=== PATIENT | female | born 1945 | race American Indian/Alaskan Native ===

== ENCOUNTER 2016-05-01 07:33 | Inpatient (IN) | payer MEDICARE, OTHER ==
--- NOTE | 2016-04-24 11:16 | Anesthesia Consultation ---
Anesthesia Consult and Med Hx Date of service: 04/24/16 - Airway Anesthetic Teeth Evaluation: Good ROM Head & Neck: Adequate Mental/Hyoid Distance: Adequate Mallampati Class: Class II Intubation Access Assessment: Probably Good - Pre-Operative Health Status ASA Pre-Surgery Classification: ASA3 Proposed Anesthetic Plan: Epidural, Spinal Nerve Block: Femoral - Pulmonary Hx Smoking: Yes (STOPPED X 30 YRS- 1 PACK PER WEEK) Hx Sleep Apnea: No (DOLLY PRE SCREEN HIGH RISK) - Cardiovascular System Hx Hypertension: Yes (X 20 YRS) Hx Coronary Artery Disease: (high cholesterol) - Endocrine Hx Insulin Dependent Diabetes: Yes - Hematic Hx Sickle Cell Disease: No (SC TRAIT ONLY) - Other Systems Hx Cancer: No Hx Obesity: Yes (BMI 41.5)
[2016-04-24 11:26] LABS: Basophils % (Auto) 0.3 % (0.0-1.8); Eosinophils % (Auto) 3.5 % (0.0-4.3); Hematocrit 37.3 % (30.3-42.9); Hemoglobin 12.2 gm/dl (10.1-14.3); Mean Corpuscular HGB Conc 33 % (30-34); Mean Corpuscular Hemoglobin 28 pg (28-32); Mean Corpuscular Volume 86 fl (79-97); Platelet Count 228 K/mm3 (140-440); Red Blood Count 4.33 M/mm3 (3.65-5.03); Red Cell Distribution Width 12.8 % (13.2-15.2); White Blood Count 8.4 K/mm3 (4.5-11.0)
[2016-04-24 11:46] LABS: Albumin 3.7 g/dL (3.9-5); BUN/Creatinine Ratio 14.7; Bilirubin,Total 0.3 mg/dL (0.1-1.2); Calcium 9.4 mg/dL (8.4-10.2); Chloride 95.1 mmol/L (98-107); Potassium 3.1 mmol/L (3.6-5.0); Total Protein 7.4 g/dL (6.3-8.2)
--- NOTE | 2016-04-30 16:10 | History and Physical Report ---
History of Present Illness Date of examination: 04/30/16 Date of admission: 04/30/16 Chief complaint: 71-year-old admitted with pain and limitation of movement left knee, confirmed diagnosis DJD. Been treated with rehabilitation, medications with no improvement, being admitted for total knee arthroplasty. Past History Past Medical History: diabetes, hyperlipidemia Medications and Allergies Allergies Allergy/AdvReac Type Severity Reaction Status Date / Time No Known Allergies Allergy Verified 04/19/16 10:30 Home Medications Medication Instructions Recorded Confirmed Last Taken Type Aspirin [Adult Low Dose Aspirin EC] 81 mg PO DAILY 04/19/16 04/19/16 Unknown History AtorvaSTATin [Lipitor] 20 mg PO DAILY 04/19/16 04/19/16 Unknown History Famotidine [Pepcid] 40 mg PO DAILY 04/19/16 04/19/16 Unknown History Fluticasone [Flonase] 1 spray NS QDAY 04/19/16 04/19/16 Unknown History Insulin Glargine [Lantus] 30 unit SUB-Q QHS 04/19/16 04/19/16 Unknown History Insulin Lispro [HumaLOG VIAL] 12 units SQ TID 04/19/16 04/19/16 Unknown History Metoprolol [Lopressor TAB] 50 mg PO DAILY 04/19/16 04/19/16 Unknown History Multivit-Min/Iron/Folic/Lutein 1 tab PO DAILY 04/19/16 04/19/16 Unknown History [Centrum Silver Women Tablet] Telmisartan/Hydrochlorothiazid 1 tab PO DAILY 04/19/16 04/19/16 Unknown History [Telmisartan-Hctz 80-25 mg Tab] amLODIPine [Norvasc] 10 mg PO DAILY 04/19/16 04/19/16 Unknown History Active Meds: Active Medications Celecoxib (Celebrex) 200 mg PO PREOP NR Stop: 05/01/16 23:01 Famotidine (Pepcid) 20 mg IV PREOP NR Stop: 05/01/16 23:01 Gabapentin (Neurontin) 150 mg PO PREOP NR Stop: 05/01/16 23:01 Cefazolin Sodium (Ancef/Sterile Water 2 Gm/20 Ml) 20 mls @ 80 mls/hr IV PREOP NR PRN Reason: Protocol Stop: 05/01/16 23:59 Sodium Chloride (Nacl 0.9% 1000 Ml) 1,000 mls @ 100 mls/hr IV DIRECT ABELARDO Midazolam HCl (Versed) 2 mg IV PREOP NR Stop: 05/01/16 23:01 Exam - Constitutional Vitals: Temp Pulse Resp BP Pulse Ox 98.6 F 70 18 130/80 04/24/16 11:00 04/24/16 11:00 04/24/16 11:00 04/24/16 11:00 General appearance: Present: no acute distress, well-nourished - EENT Eyes: Present: PERRL ENT: hearing intact, clear oral mucosa - Neck Neck: Present: supple, normal ROM - Respiratory Respiratory effort: normal Respiratory: bilateral: CTA - Cardiovascular Heart Sounds: Present: S1 & S2. Absent: rub, click - Extremities Extremities: pulses symmetrical, No edema, abnormal (A 71-year-old with limping gait, knee with swelling no effusion, crepitus with range of motion. No neurovascular deficit, quad strength grade 5. Collateral ligament stable. Knee range of motion -3 flexion 100, no popliteal masses, no calf pain, tenderness.) Peripheral Pulses: within normal limits - Abdominal General gastrointestinal: Present: soft, non-tender, non-distended, normal bowel sounds Female genitourinary: Present: normal - Integumentary Integumentary: Present: clear, warm, dry - Musculoskeletal Musculoskeletal: gait normal, strength equal bilaterally - Psychiatric Psychiatric: appropriate mood/affect, intact judgment & insight - Neurologic Neurologic: CNII-XII intact, moves all extremities Results - Labs CBC & Chem 7: 04/24/16 11:00 04/24/16 11:00 Assessment and Plan - Patient Problems (1) Left knee DJD Status: Chronic Qualifiers: Osteoarthritis type: primary Qualified Code(s): M17.12 - Unilateral primary osteoarthritis, left knee Plan to address problem: left total knee arthroplasty
[~2016-05-01 07:33] MED LIST: ANCEF/STERILE WATER 2 GM/20 ML 20 ML IV NR; NACL 0.9% IR ONE; NEOSPORIN GU IR ONE; NEURONTIN PO NR; PEPCID IV NR; VERSED IV NR
[2016-05-01] MEDS ORDERED: DILAUDID IV PRN (09:43)
[2016-05-01] MEDS ORDERED: MARCAINE-EPI 0.5%-1:200,000 INFILTRATI ONE (10:31)
[2016-05-01] MEDS: NACL 0.9% 1000 ML 1,000 ML IV SCH (10:39)
[2016-05-01] MEDS ORDERED: ZOFRAN IV PRN ×2 (11:00→19:18)
[2016-05-01] MEDS ORDERED: DIPRIVAN 10 MG/ML IV ONE ×2 (12:39)
[2016-05-01] MEDS ORDERED: VERSED ONE (12:39)
[2016-05-01] MEDS ORDERED: DILAUDID ONE (12:39)
[2016-05-01] MEDS ORDERED: KETALAR IV ONE (12:42)
[2016-05-01] MEDS ORDERED: ZOFRAN ONE (13:00)
[2016-05-01] MEDS ORDERED: XYLOCAINE MPF 2% ONE (13:00)
[2016-05-01] MEDS ORDERED: ePHEDrine SULFATE ONE (13:37)
[2016-05-01] MEDS ORDERED: NEOSPORIN GU IR ONE (13:38)
[2016-05-01] MEDS ORDERED: NACL 0.9% IR ONE ×2 (13:38)
--- NOTE | 2016-05-01 13:44 | Admit Criteria Form ---
Admission Criteria Documentation: AMBULATORY SURGERY EXCEPTION CRITERIA Ambulatory Surgery Exception Criteria ( Place 'X' for any and all applicable criteria): Surgery or procedure performed on ambulatory basis may require inpatient stay for[A] ANY ONE of the following(1)(2)(3)(4)(5)(6)(7)(8)(9): [X] I. A preoperative situation, condition, or finding that warrants inpatient stay as indicated by ANY ONE of the following: [X] a) Inpatient care needed because of severity of a disease or condition rather than the surgery (eg, severe cardiac or respiratory disease, severe infection) (15) (16 ) (17) (18) [] b) Emergent procedure (eg, angioplasty for acute ischemia)(19) [] c) Complex surgical approach or situation as indicated by ANY ONE of the following(3): [] i) Open approach needed instead of usual endoscopic, transcatheter, or other less invasive procedure [] ii) Difficult approach because of previous operation [] iii) Airway monitoring required after open neck procedures(20)(21) [] iv) Large mass requiring unusually extensive dissection [] v) Additional complicating feature requiring inpatient care (eg, drain management)(22(23): [X] d) Major surgery in a pt with high anesthetic risk as indicated by ANY ONE of the following (2)(3)(5)(7)(8): [X] i) ASA risk class III or higher (severe systemic disease impairing function) [D] [] ii) Advanced age (eg, older than 85 years)(14)(24) [] iii) Symptomatic heart failure(25) [] iv) Symptomatic asthma or COPD(8)(21) [] v) Morbid obesity with hemodynamic or respiratory problems(20)( 21)(26)(27) [] vi) Obstructive sleep apnea(20)(21) [] vii) Former premature infants who are younger than 60 weeks [] viii) High risk for severe postoperative abnormalities (eg, severe postoperative hypocalcemia after parathyroidectomy for severe hyperparathyroidism)(27)( 28) [] ix) Unstable angina(25) [] e) Drug-related risk requiring inpatient stay as indicated by ANY ONE of the following(5)(10)(14)(32)(33) [] i) Procedure requires discontinuing drugs or other therapy (eg , antiarrhythmic medication, antiseizure medication), which necessitates inpatient observation or treatment.(18)(31) [] ii) Major surgery and high risk drug use as indicated by ANY ONE of the following: [] 1) Active abuse of cocaine or similar drug [] 2) Monoamine oxidase inhibitor use [] 3) Other drug identified as posing risk [] f) Inadequate outpatient care situation as indicated by ANY ONE of the following(5)(10)(14)(32)(33) [] i) Patient lives remote from medical facility and procedure has urgent complication potential, and temporary nearby residence cannot be arranged [] ii) Patient will have postprocedure incapacitation and inadequate assistance at home, or alternative level of care cannot be arranged. [] iii) Patient will have long general anesthesia or procedure side effect resolution time, and competent person to stay with patient on first postoperative night at home or alternative level of care cannot be arranged. []iv) Other inadequate outpatient situation that cannot be handled by other means [] II. A perioperative event, condition, or finding that warrants inpatient stay as indicated by ANY ONE of the following (1)(2)(3): [] a) Inadequate physiologic recovery: cardiovascular, respiratory, or hemodynamic status not normal or near preoperative baseline(18) [] b) Hemodynamic instability [] c) Patient not alert with near normal or baseline mental status [] d) Temperature not normal or as expected and not appropriate for outpatient treatment of condition [] e) Ambulatory or appropriate activity level status not yet achieved post procedure [E](34)(35)(36) [] f) Operative site not appropriate (eg, unexpected or excessive drainage or bleeding) [] g) Postoperative effects not resolved or adequately managed (eg, significant pain or vomiting not appropriate for outpatient or next level of care)(10)(12) [] h) Complicating features requiring inpatient care as indicated by ANY ONE of the following(37): [] i) Severe complications of procedure (eg, bowel injury, airway compromise, vascular injury,severe hemorrhage) [] ii) Extensive (eg, dissection far beyond usual scope of procedure ) or prolonged (eg, 120 minutes beyond usual) surgery needed requiring inpatient postoperative care [] iii) Conversion to an open or complex procedure that requires inpatient care (eg, open vs laparoscopic cholecystectomy, abdominal vs vaginal hysterectomy)(38) [] iv) Comorbid condition or test result identified during or post procedure that requires inpatient care (7) [] v) Malignant hyperthermia(30) [] vi) Other complicating feature requiring inpatient care(22)(23) Inpatient stay may be needed until ALL of the following are present (1)(2)(3)(4) (5)(6)(10)(14)(33)(40): []a) Physiologic recovery: cardiovascular, respiratory, and hemodynamic status normal or near preoperative baseline []b) Hemodynamic stability []c) Patient alert, with near normal or baseline mental status []d) Temperature appropriate: patient afebrile or temperature appropriate for outpt treatment of condition []e) Activity level appropriate: ambulatory or appropriate activity level post procedure []f) Operative site appropriate as indicated by ALL of the following: []i) Site dry or with expected drainage []ii) Any blood noted is as expected for procedure. []g) Postoperative effects resolved or managed as indicated by ALL of the following: []i) Pain management appropriate for outpatient (or next level of) care(10) []ii) Minimal nausea and vomiting: if present, successfully treated with oral medication(12) []iii) Headache, dizziness, or drowsiness (if present) are mild. []h) Voiding status acceptable as indicated by ANY ONE of the following: []i) Voiding spontaneously []ii) No voiding but instructions given for follow-up in 6 to 8 hours []iii) Urinary catheter in place, and instructions given for follow-up []i) Complicating features requiring inpatient care manageable at a lower level of care(37) []j) Comorbid conditions manageable at a lower level of care(37) The original [employer] content created by [employer] has been revised. The portions of the content which have been revised are identified through the use of italic text or in bold, and [facility] has neither reviewed nor approved the modified material. All other unmodified content is copyright [employer]. Please see references footnoted in the original [employer] edition 2016 Admission Criteria Met: Yes
--- NOTE | 2016-05-01 14:42 | Procedure Note ---
Date of procedure: 05/01/16 Pre-op diagnosis: DJD left Knee Post-op diagnosis: same Procedure: Left total knee (cam, cemented) Anesthesia: regional, spinal Surgeon: TABATHA OKEEFE Estimated blood loss: none Pathology: list Specimen disposition: to lab Condition: stable Disposition: PACU
--- NOTE | 2016-05-01 15:36 | XRay Report ---
Left knee 2 views: History: Postop. Findings: There is total knee replacement noted. The the tibia and the femoral component is anatomic and in alignment. Postop soft tissue changes. Impression: Stable total right knee.
[2016-05-01] MEDS ORDERED: MORPHINE IV PRN (19:18)
[2016-05-01] MEDS ORDERED: TYLENOL PO PRN (19:18)
[2016-05-01] MEDS ORDERED: D50W (25GM) IV PRN (19:18)
[2016-05-01] MEDS ORDERED: AMBIEN PO PRN (19:18)
[2016-05-01] MEDS ORDERED: SODIUM CHLORIDE FLUSH SYRINGE 10 ML IV PRN (19:18)
[2016-05-01] MEDS ORDERED: PHENERGAN PR PRN (19:18)
[2016-05-01] MEDS ORDERED: INSULIN LISPRO 12 UNIT SQ SCH (20:00)
--- NOTE | 2016-05-01 20:16 | Operative Report ---
PREOPERATIVE DIAGNOSIS: Severe degenerative joint disease, left knee. POSTOPERATIVE DIAGNOSIS: Severe degenerative joint disease, left knee. OPERATIVE PROCEDURE: Left total knee arthroplasty, Ralph, cemented. SURGEON: Omero Rodrigues MD CLIENT CARE COORDINATOR: Loulou Trevino CSA. ANESTHESIA: Regional block with general sedation. TOURNIQUET TIME: 1 hour 10 minutes approximate. DESCRIPTION OF PROCEDURE: The patient was taken to surgery suite, satisfactory analgesia obtained with regional block supplemented with general sedation. The left lower limb prepped with ChloraPrep, satisfactorily draped. The correct patient, procedure, and site were confirmed. After exsanguinating, tourniquet inflated to 300 mmHg pressure. Midline incision was made and the knee was entered. Intramedullary alignment system was applied and distal femur was resected at 5 degree valgus and 9 mm thickness to the tip of the femoral condyle. With the #[address], anterior, posterior chamfer cuts were made. Remaining osteophytes were debrided and a complete synovectomy was carried out. Trial fitting was carried out, fit appeared satisfactory. Drill holes were made to the end of the femur to allow seating of the femoral peg. After excising the meniscus, joint capsule was elevated. Tibia delivered anteriorly to the wound and the proximal tibia was resected at 9 mm thickness to the lateral tibial plateau, resection made perpendicular to the long axis of the tibia. PCL was preserved. Tibial surface templated to 4 and with the [address], proximal tibia was osteotomized to allow seating of the tibial stem. Trial reduction was carried out using the #4 tibial and femoral components and 9 mm thick tibia spacer, the range of component appeared fitting satisfactory and stability appeared satisfactory. The patella was then reamed to allow a 27 mm inset patellar tracking appeared central. Wound was irrigated with pulse irrigation system, a #4 femoral component, 4 tibial baseplate and a 27 mm all polyethylene patella was cemented in place. Extruding methyl methacrylate was debrided and the wound was irrigated with pulse irrigation system. Trial reduction was again carried out using the 9 and 11 mm thick spacers, 11 mm thickness appeared giving optimal stability and range of motion, 0-120 degrees. The trial spacer was then exchanged for a high density polyethylene spacer locked in place and PCL was preserved. Following irrigation, the wound was closed in layers in the standard fashion using 0 Vicryl, 2-0 Vicryl, and simón. Sterile dressings were applied. The patient was transferred to recovery room in satisfactory condition, tolerated the procedure well and at the completion of procedure, counts were accurate. JOB# [id number] YANIV/MADHU
--- NOTE | 2016-05-01 21:47 | Consultation ---
History of Present Illness - Reason for Consult Consult date: 05/01/16 Medical management Requesting physician: TABATHA OKEEFE - History of Present Illness S/p Lt TKA -post op doing well Past History Past Medical History: diabetes, GERD, hypertension, hyperlipidemia Past Surgical History: total knee replacement Medications and Allergies Allergies Allergy/AdvReac Type Severity Reaction Status Date / Time No Known Allergies Allergy Verified 04/19/16 10:30 Home Medications Medication Instructions Recorded Confirmed Last Taken Type Aspirin [Adult Low Dose Aspirin EC] 81 mg PO DAILY 04/19/16 04/19/16 Unknown History AtorvaSTATin [Lipitor] 20 mg PO DAILY 04/19/16 04/19/16 Unknown History Famotidine [Pepcid] 40 mg PO DAILY 04/19/16 04/19/16 Unknown History Fluticasone [Flonase] 1 spray NS QDAY 04/19/16 04/19/16 Unknown History Insulin Glargine [Lantus] 30 unit SUB-Q QHS 04/19/16 04/19/16 Unknown History Insulin Lispro [HumaLOG VIAL] 12 units SQ TID 04/19/16 04/19/16 Unknown History Metoprolol [Lopressor TAB] 50 mg PO DAILY 04/19/16 04/19/16 Unknown History Multivit-Min/Iron/Folic/Lutein 1 tab PO DAILY 04/19/16 04/19/16 Unknown History [Centrum Silver Women Tablet] Telmisartan/Hydrochlorothiazid 1 tab PO DAILY 04/19/16 04/19/16 Unknown History [Telmisartan-Hctz 80-25 mg Tab] amLODIPine [Norvasc] 10 mg PO DAILY 04/19/16 04/19/16 Unknown History Active Meds: Active Medications Acetaminophen (Tylenol) 650 mg PO Q4H PRN PRN Reason: Pain MILD(1-3)/Fever >100.5/HORNE Amlodipine Besylate (Norvasc) 10 mg PO DAILY ABELARDO Aspirin (Halfprin Ec) 81 mg PO DAILY ABELARDO Atorvastatin Calcium (Lipitor) 20 mg PO HS ABELARDO Celecoxib (Celebrex) 100 mg PO BID ABELARDO Dextrose (D50w (25gm)) 50 ml IV PRN PRN PRN Reason: Hypoglycemia Enoxaparin Sodium (Lovenox) 40 mg SUB-Q QDAY ABELARDO Famotidine (Pepcid) 40 mg PO QDAY ABELARDO Fluticasone Propionate (Flonase) 50 mcg NS QDAY [facility] Hydrochlorothiazide (Hctz) 25 mg PO QDAY [facility] Sodium Chloride (Nacl 0.9% 1000 Ml) 1,000 mls @ 100 mls/hr IV DIRECT ABELARDO Last Admin: 05/01/16 10:39 Dose: 100 mls/hr Cefazolin Sodium (Ancef/Ns 1 Gm/50 Ml) 50 mls @ 100 mls/hr IV Q8H [facility] Stop: 05/02/16 04:29 Insulin Aspart (Novolog) 12 units SUB-Q AC [facility] Insulin Detemir (Levemir) 30 units SUB-Q QHS [facility] Losartan Potassium (Cozaar) 50 mg PO QDAY [facility] Metoprolol Succinate (Toprol Xl) 50 mg PO QDAY [facility] Morphine Sulfate (Morphine) 2 mg IV Q4H PRN PRN Reason: Pain, Moderate (4-6) Multivitamins/Minerals (Theragran-M Tab) 1 each PO QDAY [facility] Ondansetron HCl (Zofran) 4 mg IV Q8H PRN PRN Reason: Nausea And Vomiting Oxycodone HCl (Oxycontin) 10 mg PO Q12HR [facility] Oxycodone/Acetaminophen (Percocet 5/325) 1 tab PO Q6H PRN PRN Reason: Pain, Moderate (4-6) Promethazine HCl (Phenergan) 25 mg SC Q6H PRN PRN Reason: Nausea And Vomiting Sodium Chloride (Sodium Chloride Flush Syringe 10 Ml) 10 ml IV PRN PRN PRN Reason: LINE FLUSH Zolpidem Tartrate (Ambien) 5 mg PO QHS PRN PRN Reason: Sleep Review of Systems All systems: negative Exam - Constitutional Vitals: Temp Pulse Resp BP Pulse Ox 97.3 F L 58 L 20 129/60 99 05/01/16 19:35 05/01/16 19:35 05/01/16 19:35 05/01/16 19:35 05/01/16 19:35 General appearance: Present: no acute distress, well-nourished - EENT Eyes: Present: PERRL ENT: hearing intact, clear oral mucosa - Neck Neck: Present: supple, normal ROM - Respiratory Respiratory effort: normal Respiratory: bilateral: CTA - Cardiovascular Heart Sounds: Present: S1 & S2. Absent: rub, click - Extremities Extremities: pulses symmetrical, No edema Peripheral Pulses: within normal limits - Abdominal General gastrointestinal: Present: soft, non-tender, non-distended, normal bowel sounds Female genitourinary: Present: normal - Integumentary Integumentary: Present: clear, warm, dry - Musculoskeletal Musculoskeletal: gait normal, strength equal bilaterally - Psychiatric Psychiatric: appropriate mood/affect, intact judgment & insight - Neurologic Neurologic: CNII-XII intact, moves all extremities Results - Labs CBC & Chem 7: 04/24/16 11:00 05/01/16 10:25 Labs: Abnormal lab results 05/01/16 05/01/16 Range/Units 10:25 10:33 Potassium 3.3 L (3.6-5.0) mmol/L POC Glucose 110 H (70-105) Assessment and Plan - Patient Problems (1) History of total knee arthroplasty Current Visit: Yes Status: Acute Qualifiers: Laterality: left Qualified Code(s): Z96.652 - Presence of left artificial knee joint Plan to address problem: Doing well (2) IDDM (insulin dependent diabetes mellitus) Current Visit: Yes Status: Chronic Plan to address problem: Cont Humalog +coverage (3) HTN (hypertension) Current Visit: Yes Status: Chronic Qualifiers: Hypertension type: essential hypertension Qualified Code(s): I10 - Essential (primary) hypertension Plan to address problem: On Telmisartan (4) HLD (hyperlipidemia) Current Visit: Yes Status: Chronic Qualifiers: Hyperlipidemia type: mixed hyperlipidemia Qualified Code(s): E78.2 - Mixed hyperlipidemia Plan to address problem: On Statins (5) DVT prophylaxis Current Visit: Yes Status: Acute Plan to address problem: On lovenox
[2016-05-01] MEDS ORDERED: INSULIN GLARGINE 30 UNIT SUB-Q SCH (22:00)
[2016-05-01] MEDS: LEVEMIR SUB-Q SCH (22:00)
[2016-05-01] MEDS: ANCEF/NS 1 GM/50 ML 50 ML IV SCH (22:09)
[2016-05-02] MEDS: ANCEF/NS 1 GM/50 ML 50 ML IV SCH (05:15)
[2016-05-02] MEDS: OxyCONTIN PO SCH ×3 (06:00→22:02)
[2016-05-02 06:10] LABS: Hematocrit 30.8 % (30.3-42.9); Hemoglobin 10.1 gm/dl (10.1-14.3)
[2016-05-02 06:23] LABS: BUN/Creatinine Ratio 18.18; Calcium 8.5 mg/dL (8.4-10.2); Chloride 103.1 mmol/L (98-107); Potassium 4.6 mmol/L (3.6-5.0)
--- NOTE | 2016-05-02 07:59 | Progress Note ---
Assessment and Plan Assessment and plan: S/P TKA - doing well HTN - controlled - Continue current meds DM - continue insulin HLD - continue current meds Prophylaxis - Per orthopedics History Interval history: Patient is doing well, no new complaints. We consulted for the management of diabetes and hypertension. Hospitalist Physical - Physical exam Narrative exam: Not in cardiopulmonary distress. The patient appeared well nourished and normally developed. Vital signs as documented. Head exam is unremarkable. No scleral icterus . Neck is without jugular venous distension, thyromegaly, or carotid bruits. Lungs are clear to auscultation. Cardiac exam reveals regular rate and Rhythm. First and second heart sounds normal. No murmurs, rubs or gallops. Abdominal exam reveals normal bowel sounds, no masses, no organomegaly and no aortic enlargement. Extremities are nonedematous and both femoral and pedal pulses are normal. [employer] OPERATOR: Alert and oriented 3. No focal weakness. - Constitutional Vitals: Temp Pulse Resp BP Pulse Ox 98.1 F 61 20 145/64 99 05/02/16 04:10 05/02/16 04:10 05/02/16 04:10 05/02/16 04:10 05/02/16 04:10 General appearance: Present: no acute distress, well-nourished Results - Labs CBC & Chem 7: 05/02/16 05:23 05/02/16 05:23 Labs: Laboratory Last Values WBC 8.4 K/mm3 (4.5-11.0) 04/24/16 11:00 RBC 4.33 M/mm3 (3.65-5.03) 04/24/16 11:00 Hgb 10.1 gm/dl (10.1-14.3) 05/02/16 05:23 Hct 30.8 % (30.3-42.9) 05/02/16 05:23 MCV 86 fl (79-97) 04/24/16 11:00 MCH 28 pg (28-32) 04/24/16 11:00 MCHC 33 % (30-34) 04/24/16 11:00 RDW 12.8 % (13.2-15.2) L 04/24/16 11:00 Plt Count 228 K/mm3 (140-440) 04/24/16 11:00 Lymph % (Auto) 36.0 % (13.4-35.0) H 04/24/16 11:00 [place] % (Auto) 7.6 % (0.0-7.3) H 04/24/16 11:00 Eos % (Auto) 3.5 % (0.0-4.3) 04/24/16 11:00 Baso % (Auto) 0.3 % (0.0-1.8) 04/24/16 11:00 Lymph # 3.0 K/mm3 (1.2-5.4) 04/24/16 11:00 [place] # 0.6 K/mm3 (0.0-0.8) 04/24/16 11:00 Eos # 0.3 K/mm3 (0.0-0.4) 04/24/16 11:00 Baso # 0.0 K/mm3 (0.0-0.1) 04/24/16 11:00 Seg Neutrophils % 52.6 % (40.0-70.0) 04/24/16 11:00 Seg Neutrophils # 4.4 K/mm3 (1.8-7.7) 04/24/16 11:00 Sodium 139 mmol/L (137-145) 05/02/16 05:23 Potassium 4.6 mmol/L (3.6-5.0) D 05/02/16 05:23 Chloride 103.1 mmol/L (98-107) 05/02/16 05:23 Carbon Dioxide 22 mmol/L (22-30) 05/02/16 05:23 Anion Gap 19 mmol/L 05/02/16 05:23 BUN 20 mg/dL (7-17) H 05/02/16 05:23 Creatinine 1.1 mg/dL (0.7-1.2) 05/02/16 05:23 Estimated GFR 59 ml/min 05/02/16 05:23 BUN/Creatinine Ratio 18.18 % 05/02/16 05:23 Glucose 205 mg/dL (65-100) H 05/02/16 05:23 POC Glucose 201 (70-105) H 05/01/16 21:57 Calcium 8.5 mg/dL (8.4-10.2) 05/02/16 05:23 Total Bilirubin 0.3 mg/dL (0.1-1.2) 04/24/16 11:00 AST 16 units/L (5-40) 04/24/16 11:00 ALT 9 units/L (7-56) 04/24/16 11:00 Alkaline Phosphatase 87 units/L (35-129) 04/24/16 11:00 Total Protein 7.4 g/dL (6.3-8.2) 04/24/16 11:00 Albumin 3.7 g/dL (3.9-5) L 04/24/16 11:00 Albumin/Globulin Ratio 1.0 % 04/24/16 11:00
[2016-05-02] MEDS: NOVOLOG SUB-Q SCH ×3 (09:23→16:25)
[2016-05-02] MEDS: NACL 0.9% 1000 ML 1,000 ML IV SCH (09:23)
[2016-05-02] MEDS: FLONASE NS SCH (09:25)
[2016-05-02] MEDS: COZAAR PO SCH (09:25)
[2016-05-02] MEDS: HALFPRIN EC PO SCH (09:26)
[2016-05-02] MEDS: NORVASC PO SCH (09:27)
[2016-05-02] MEDS: HCTZ PO SCH (09:27)
[2016-05-02] MEDS: TOPROL XL PO SCH (09:28)
[2016-05-02] MEDS: THERAGRAN-M Tab PO SCH (09:28)
[2016-05-02] MEDS: PEPCID PO SCH (09:28)
[2016-05-02] MEDS ORDERED: NON-FORMULARY (Famotidine [Pepcid] 40 MG) PO SCH (10:00)
[2016-05-02] MEDS ORDERED: HYDROCHLOROTHIAZID PO SCH (10:00)
[2016-05-02] MEDS ORDERED: IRON PO SCH (10:00)
[2016-05-02] MEDS ORDERED: FOLIC PO SCH (10:00)
[2016-05-02] MEDS ORDERED: TELMISARTAN PO SCH (10:00)
[2016-05-02] MEDS ORDERED: LOPRESSOR PO SCH (10:00)
[2016-05-02] MEDS ORDERED: LUTEIN PO SCH (10:00)
[2016-05-02] MEDS ORDERED: MULTIVIT MIN PO SCH (10:00)
--- NOTE | 2016-05-02 12:35 | Anesthesia Day of Surgery ---
Anesthesia Day of Surgery - Day of Surgery Patient Examined: Yes Patient H&P Reviewed: Yes Patient is NPO: Yes Beta Blockers: Yes
--- NOTE | 2016-05-02 12:39 | Post Anesthesia Evaluation ---
- Post Anesthesia Evaluation Patient Participated: Yes Airway Patent: Yes Stable Respiratory Function: Yes Temp > 96.8F: Yes Pain Manageable: Yes Adequeate Hydration: Yes Anesthesia Complications: No Block Receding Appropriately: Yes
[2016-05-02] MEDS: PERCOCET 5/325 PO PRN (14:33)
--- NOTE | 2016-05-02 15:28 | Progress Note ---
[id number] Status: Chronic Qualifiers: Osteoarthritis type: primary Qualified Code(s): M17.12 - Unilateral primary osteoarthritis, left knee Plan to address problem: Continue with rehabilitation program, weightbearing as tolerated, DVT prophylaxis. Plan discharge the next one to 2 days. Subjective Date of service: 05/02/16 Interval history: Total knee arthroplasty, pain well-controlled, out of bed and able to bear weight. No calf pain or tenderness. Objective Vital signs: Vital Signs - 12hr 05/02/16 05/02/16 05/02/16 04:10 08:00 08:19 Temperature 98.1 F 98.5 F Pulse Rate Pulse Rate [ Apical] Pulse Rate [ 61 64 Right From Monitor] Respiratory 20 18 Rate Respiratory Rate [Left Knee ] Blood Pressure Blood Pressure 145/64 140/63 [Right Arm] O2 Sat by Pulse 99 96 100 Oximetry 05/02/16 05/02/16 05/02/16 09:24 09:25 09:27 Temperature Pulse Rate 64 64 Pulse Rate [ Apical] Pulse Rate [ Right From Monitor] Respiratory 20 Rate Respiratory Rate [Left Knee ] Blood Pressure 140/63 140/63 Blood Pressure [Right Arm] O2 Sat by Pulse Oximetry 05/02/16 05/02/16 05/02/16 09:28 11:28 12:00 Temperature 98.6 F Pulse Rate 64 Pulse Rate [ 66 Apical] Pulse Rate [ Right From Monitor] Respiratory 18 Rate Respiratory 16 Rate [Left Knee ] Blood Pressure 140/63 Blood Pressure 136/64 [Right Arm] O2 Sat by Pulse Oximetry 05/02/16 05/02/16 14:33 15:25 Temperature 99.2 F Pulse Rate Pulse Rate [ 75 Apical] Pulse Rate [ Right From Monitor] Respiratory 20 18 Rate Respiratory Rate [Left Knee ] Blood Pressure Blood Pressure 140/65 [Right Arm] O2 Sat by Pulse Oximetry - Labs CBC & BMP: 05/02/16 05:23 05/02/16 05:23 Labs: Abnormal lab results 05/01/16 05/02/16 05/02/16 Range/Units 21:57 05:09 05:23 BUN 20 H (7-17) mg/dL Glucose 205 H (65-100) mg/dL POC Glucose 201 H 225 H (70-105) 05/02/16 05/02/16 Range/Units 08:14 11:43 BUN (7-17) mg/dL Glucose (65-100) mg/dL POC Glucose 190 H 188 H (70-105)
--- NOTE | 2016-05-02 15:33 | Progress Note ---
Subjective Date of service: 05/02/16 Interval history: 1st POD after total knee arthroplasty Patient is in the bed, comfortable. Pain is well controlled with pain meds. Ambulated with physical therapist. No nausea or vomiting. No anesthesia complications Objective - Constitutional Vitals: Vital Signs - 12hr 05/02/16 05/02/16 05/02/16 04:10 08:00 08:19 Temperature 98.1 F 98.5 F Pulse Rate Pulse Rate [ Apical] Pulse Rate [ 61 64 Right From Monitor] Respiratory 20 18 Rate Respiratory Rate [Left Knee ] Blood Pressure Blood Pressure 145/64 140/63 [Right Arm] O2 Sat by Pulse 99 96 100 Oximetry 05/02/16 05/02/16 05/02/16 09:24 09:25 09:27 Temperature Pulse Rate 64 64 Pulse Rate [ Apical] Pulse Rate [ Right From Monitor] Respiratory 20 Rate Respiratory Rate [Left Knee ] Blood Pressure 140/63 140/63 Blood Pressure [Right Arm] O2 Sat by Pulse Oximetry 05/02/16 05/02/16 05/02/16 09:28 11:28 12:00 Temperature 98.6 F Pulse Rate 64 Pulse Rate [ 66 Apical] Pulse Rate [ Right From Monitor] Respiratory 18 Rate Respiratory 16 Rate [Left Knee ] Blood Pressure 140/63 Blood Pressure 136/64 [Right Arm] O2 Sat by Pulse Oximetry 05/02/16 05/02/16 14:33 15:25 Temperature 99.2 F Pulse Rate Pulse Rate [ 75 Apical] Pulse Rate [ Right From Monitor] Respiratory 20 18 Rate Respiratory Rate [Left Knee ] Blood Pressure Blood Pressure 140/65 [Right Arm] O2 Sat by Pulse Oximetry - Labs CBC & Chem 7: 05/02/16 05:23 05/02/16 05:23 Labs: Abnormal lab results 05/01/16 05/02/16 05/02/16 Range/Units 21:57 05:09 05:23 BUN 20 H (7-17) mg/dL Glucose 205 H (65-100) mg/dL POC Glucose 201 H 225 H (70-105) 05/02/16 05/02/16 Range/Units 08:14 11:43 BUN (7-17) mg/dL Glucose (65-100) mg/dL POC Glucose 190 H 188 H (70-105)
[2016-05-02] MEDS: LEVEMIR SUB-Q SCH (22:03)
[2016-05-03] MEDS: NACL 0.9% 1000 ML 1,000 ML IV SCH (01:10)
[2016-05-03] MEDS: NOVOLOG SUB-Q SCH ×3 (07:30→17:00)
[2016-05-03] MEDS: HCTZ PO SCH (09:30)
[2016-05-03] MEDS: LOVENOX SUB-Q SCH (09:30)
[2016-05-03] MEDS: PEPCID PO SCH (09:30)
[2016-05-03] MEDS: FLONASE NS SCH (09:30)
[2016-05-03] MEDS: TOPROL XL PO SCH (09:30)
[2016-05-03] MEDS: HALFPRIN EC PO SCH (09:30)
[2016-05-03] MEDS: OxyCONTIN PO SCH ×2 (09:30→22:57)
[2016-05-03] MEDS: COZAAR PO SCH (09:30)
[2016-05-03] MEDS: THERAGRAN-M Tab PO SCH (09:30)
[2016-05-03] MEDS: NORVASC PO SCH (09:30)
--- NOTE | 2016-05-03 13:06 | Progress Note ---
Assessment and Plan Assessment and plan: S/P TKA - doing well HTN - Uncontrolled - Increase losartan and metoprolol to 100mg each DM - Increase levemir to 35 units QHS HLD - continue current meds Disposition - Per orthopedics History Interval history: Patient is doing well, no new complaints. We consulted for the management of diabetes and hypertension. Hospitalist Physical - Physical exam Narrative exam: Not in cardiopulmonary distress. The patient appeared well nourished and normally developed. Vital signs as documented. Head exam is unremarkable. No scleral icterus . Neck is without jugular venous distension, thyromegaly, or carotid bruits. Lungs are clear to auscultation. Cardiac exam reveals regular rate and Rhythm. First and second heart sounds normal. No murmurs, rubs or gallops. Abdominal exam reveals normal bowel sounds, no masses, no organomegaly and no aortic enlargement. Extremities are nonedematous and both femoral and pedal pulses are normal. LEGAL COMPLIANCE OFFICER: Alert and oriented 3. No focal weakness. - Constitutional Vitals: Temp Pulse Resp BP Pulse Ox 99.3 F 84 18 172/74 94 05/03/16 08:00 05/03/16 09:30 05/03/16 09:30 05/03/16 09:30 05/03/16 08:00 General appearance: Present: no acute distress, well-nourished Results - Labs CBC & Chem 7: 05/02/16 05:23 05/02/16 05:23 Labs: Laboratory Last Values WBC 8.4 K/mm3 (4.5-11.0) 04/24/16 11:00 RBC 4.33 M/mm3 (3.65-5.03) 04/24/16 11:00 Hgb 10.1 gm/dl (10.1-14.3) 05/02/16 05:23 Hct 30.8 % (30.3-42.9) 05/02/16 05:23 MCV 86 fl (79-97) 04/24/16 11:00 MCH 28 pg (28-32) 04/24/16 11:00 MCHC 33 % (30-34) 04/24/16 11:00 RDW 12.8 % (13.2-15.2) L 04/24/16 11:00 Plt Count 228 K/mm3 (140-440) 04/24/16 11:00 Lymph % (Auto) 36.0 % (13.4-35.0) H 04/24/16 11:00 [place] % (Auto) 7.6 % (0.0-7.3) H 04/24/16 11:00 Eos % (Auto) 3.5 % (0.0-4.3) 04/24/16 11:00 Baso % (Auto) 0.3 % (0.0-1.8) 04/24/16 11:00 Lymph # 3.0 K/mm3 (1.2-5.4) 04/24/16 11:00 [place] # 0.6 K/mm3 (0.0-0.8) 04/24/16 11:00 Eos # 0.3 K/mm3 (0.0-0.4) 04/24/16 11:00 Baso # 0.0 K/mm3 (0.0-0.1) 04/24/16 11:00 Seg Neutrophils % 52.6 % (40.0-70.0) 04/24/16 11:00 Seg Neutrophils # 4.4 K/mm3 (1.8-7.7) 04/24/16 11:00 Sodium 139 mmol/L (137-145) 05/02/16 05:23 Potassium 4.6 mmol/L (3.6-5.0) D 05/02/16 05:23 Chloride 103.1 mmol/L (98-107) 05/02/16 05:23 Carbon Dioxide 22 mmol/L (22-30) 05/02/16 05:23 Anion Gap 19 mmol/L 05/02/16 05:23 BUN 20 mg/dL (7-17) H 05/02/16 05:23 Creatinine 1.1 mg/dL (0.7-1.2) 05/02/16 05:23 Estimated GFR 59 ml/min 05/02/16 05:23 BUN/Creatinine Ratio 18.18 % 05/02/16 05:23 Glucose 205 mg/dL (65-100) H 05/02/16 05:23 POC Glucose 241 (70-105) H 05/03/16 11:18 Calcium 8.5 mg/dL (8.4-10.2) 05/02/16 05:23 Total Bilirubin 0.3 mg/dL (0.1-1.2) 04/24/16 11:00 AST 16 units/L (5-40) 04/24/16 11:00 ALT 9 units/L (7-56) 04/24/16 11:00 Alkaline Phosphatase 87 units/L (35-129) 04/24/16 11:00 Total Protein 7.4 g/dL (6.3-8.2) 04/24/16 11:00 Albumin 3.7 g/dL (3.9-5) L 04/24/16 11:00 Albumin/Globulin Ratio 1.0 % 04/24/16 11:00
--- NOTE | 2016-05-03 14:11 | Progress Note ---
Assessment and Plan - Patient Problems (1) Left knee DJD Current Visit: Yes Status: Chronic Qualifiers: Osteoarthritis type: primary Qualified Code(s): M17.12 - Unilateral primary osteoarthritis, left knee Plan to address problem: Stable, doing well; to continue with rehabilitation program, DVT prophylaxis. Awaiting placement, once bed available patient may be discharged to [facility]. Subjective Date of service: 05/03/16 Interval history: Total knee arthroplasty, pain well-controlled, out of bed and able to bear weight. No calf pain or tenderness. Objective Vital signs: Vital Signs - 12hr 05/03/16 05/03/16 05/03/16 07:22 08:00 09:30 Temperature 99.3 F Pulse Rate 75 Pulse Rate [ 75 Apical] Respiratory 18 18 Rate Blood Pressure 172/74 Blood Pressure 172/74 [Right Arm] O2 Sat by Pulse 94 94 Oximetry - Labs CBC & BMP: 05/02/16 05:23 05/02/16 05:23 Labs: Abnormal lab results 05/02/16 05/02/16 05/03/16 Range/Units 16:07 22:00 07:38 POC Glucose 310 H 142 H 295 H (70-105) 05/03/16 Range/Units 11:18 POC Glucose 241 H (70-105)
--- NOTE | 2016-05-03 14:12 | Discharge Summary ---
Providers - Providers Date of Admission: 05/01/16 09:38 Date of discharge: 05/08/16 Attending physician: BROOK KINCAID MD 05/01/16 00:01 Consult to Case Management [CONS] Routine Services Needed at Discharge: DME Equipment Other Notified:: ROUTER OPERATOR RADIAL Additional Physician Instructions: Patient requests halfway/rehab facility placement Consult to Physician [CONS] Routine Consulting Provider: JARAD MORALES Reason For Exam: post op medical care Place consult to:: DR. MORALES Notified:: DR. MORALES Was contact made?: Yes If yes, spoke with:: DR. MORALES Time called:: 18:37 Comment:: CONSULT COMPLETED - [facility] Physical Therapy Evaluation and Treat [CONS] Routine Comment: Reason For Exam: s/p left total knee Mode of Transport?: Wheelchair Weight bearing status?: Partial wt bearing Assistive devices?: Yes If so list: Walker 05/02/16 14:40 Physical Therapy Evaluation and Treat [CONS] Routine Comment: Reason For Exam: s/p total knee Primary care physician: SIEVE MAKER Hospitalization Reason for admission: DJD knee Condition: Stable Procedures: Total knee arthroplasty, [place],cemented. Hospital course: uneventful, no complications Disposition: DC/TX INPT REHAB FACILITY - Discharge Diagnoses (1) Left knee DJD Status: Chronic Qualifiers: Osteoarthritis type: primary Qualified Code(s): M17.12 - Unilateral primary osteoarthritis, left knee Core Measure Documentation - Palliative Care Palliative Care/ Comfort Measures: Not Applicable - Core Measures Any of the following diagnoses?: none Exam - Constitutional Vitals: Temp Pulse Resp BP Pulse Ox 99.3 F 84 18 172/74 94 05/03/16 08:00 05/03/16 09:30 05/03/16 09:30 05/03/16 09:30 05/03/16 08:00 Plan Activity: no driving until cleared by PCP Weight Bearing Status: Full Weight Bearing Diet: regular Wound: per your surgeon's advice Durable Medical Equipment Needed Upon Discharge: Walker-Rolling, Bedside commode -elevated Follow up with: PRIMARY MD SILVIA [Primary Care Provider] - 7 Days TABATHA OKEEFE MD [Staff Physician] - 7 Days Prescriptions: Enoxaparin [Lovenox] 40 mg SQ QDAY #14 syringe
[2016-05-03] MEDS: LEVEMIR SUB-Q SCH (22:58)
--- NOTE | 2016-05-04 07:57 | Progress Note ---
Assessment and Plan Assessment and plan: S/P TKA - doing well HTN - Controlled - Increased losartan and metoprolol to 100mg each DM - Increased levemir to 35 units QHS HLD - continue current meds Disposition - Per orthopedics she was discharged yesterday but she is still here because of the insurance processing issue. History Interval history: Patient is doing well, no new complaints. We consulted for the management of diabetes and hypertension. patient was discharged by orthopedics but didn't go to rehab because of insurance processing issue. Hospitalist Physical - Physical exam Narrative exam: Not in cardiopulmonary distress. The patient appeared well nourished and normally developed. Vital signs as documented. Head exam is unremarkable. No scleral icterus . Neck is without jugular venous distension, thyromegaly, or carotid bruits. Lungs are clear to auscultation. Cardiac exam reveals regular rate and Rhythm. First and second heart sounds normal. No murmurs, rubs or gallops. Abdominal exam reveals normal bowel sounds, no masses, no organomegaly and no aortic enlargement. Extremities are nonedematous and both femoral and pedal pulses are normal. CAFETERIA COUNTER ATTENDANT: Alert and oriented 3. No focal weakness. - Constitutional Vitals: Temp Pulse Resp BP Pulse Ox 98.2 F 75 20 140/67 97 05/03/16 23:01 05/03/16 23:01 05/03/16 23:01 05/03/16 23:01 05/03/16 23:01 General appearance: Present: no acute distress, well-nourished Results - Labs CBC & Chem 7: 05/02/16 05:23 05/02/16 05:23 Labs: Laboratory Last Values WBC 8.4 K/mm3 (4.5-11.0) 04/24/16 11:00 RBC 4.33 M/mm3 (3.65-5.03) 04/24/16 11:00 Hgb 10.1 gm/dl (10.1-14.3) 05/02/16 05:23 Hct 30.8 % (30.3-42.9) 05/02/16 05:23 MCV 86 fl (79-97) 04/24/16 11:00 MCH 28 pg (28-32) 04/24/16 11:00 MCHC 33 % (30-34) 04/24/16 11:00 RDW 12.8 % (13.2-15.2) L 04/24/16 11:00 Plt Count 228 K/mm3 (140-440) 04/24/16 11:00 Lymph % (Auto) 36.0 % (13.4-35.0) H 04/24/16 11:00 [place] % (Auto) 7.6 % (0.0-7.3) H 04/24/16 11:00 Eos % (Auto) 3.5 % (0.0-4.3) 04/24/16 11:00 Baso % (Auto) 0.3 % (0.0-1.8) 04/24/16 11:00 Lymph # 3.0 K/mm3 (1.2-5.4) 04/24/16 11:00 [place] # 0.6 K/mm3 (0.0-0.8) 04/24/16 11:00 Eos # 0.3 K/mm3 (0.0-0.4) 04/24/16 11:00 Baso # 0.0 K/mm3 (0.0-0.1) 04/24/16 11:00 Seg Neutrophils % 52.6 % (40.0-70.0) 04/24/16 11:00 Seg Neutrophils # 4.4 K/mm3 (1.8-7.7) 04/24/16 11:00 Sodium 139 mmol/L (137-145) 05/02/16 05:23 Potassium 4.6 mmol/L (3.6-5.0) D 05/02/16 05:23 Chloride 103.1 mmol/L (98-107) 05/02/16 05:23 Carbon Dioxide 22 mmol/L (22-30) 05/02/16 05:23 Anion Gap 19 mmol/L 05/02/16 05:23 BUN 20 mg/dL (7-17) H 05/02/16 05:23 Creatinine 1.1 mg/dL (0.7-1.2) 05/02/16 05:23 Estimated GFR 59 ml/min 05/02/16 05:23 BUN/Creatinine Ratio 18.18 % 05/02/16 05:23 Glucose 205 mg/dL (65-100) H 05/02/16 05:23 POC Glucose 181 (70-105) H 05/03/16 21:09 Calcium 8.5 mg/dL (8.4-10.2) 05/02/16 05:23 Total Bilirubin 0.3 mg/dL (0.1-1.2) 04/24/16 11:00 AST 16 units/L (5-40) 04/24/16 11:00 ALT 9 units/L (7-56) 04/24/16 11:00 Alkaline Phosphatase 87 units/L (35-129) 04/24/16 11:00 Total Protein 7.4 g/dL (6.3-8.2) 04/24/16 11:00 Albumin 3.7 g/dL (3.9-5) L 04/24/16 11:00 Albumin/Globulin Ratio 1.0 % 04/24/16 11:00
[2016-05-04] MEDS: NOVOLOG SUB-Q SCH ×3 (08:30→16:27)
[2016-05-04] MEDS: LOVENOX SUB-Q SCH (10:00)
[2016-05-04] MEDS: OxyCONTIN PO SCH ×2 (10:01→21:48)
[2016-05-04] MEDS: COZAAR PO SCH (10:02)
[2016-05-04] MEDS: FLONASE NS SCH (10:03)
[2016-05-04] MEDS: HCTZ PO SCH (10:03)
[2016-05-04] MEDS: HALFPRIN EC PO SCH (10:04)
[2016-05-04] MEDS: PEPCID PO SCH (10:05)
[2016-05-04] MEDS: THERAGRAN-M Tab PO SCH (10:05)
[2016-05-04] MEDS: TOPROL XL PO SCH (10:06)
[2016-05-04] MEDS: NORVASC PO SCH (10:07)
[2016-05-04] MEDS: LEVEMIR SUB-Q SCH (22:00)
[2016-05-05] MEDS: NORVASC PO SCH (09:30)
[2016-05-05] MEDS: LOVENOX SUB-Q SCH (09:30)
[2016-05-05] MEDS: NOVOLOG SUB-Q SCH ×3 (09:30→17:46)
[2016-05-05] MEDS: PEPCID PO SCH (09:31)
[2016-05-05] MEDS: COZAAR PO SCH (09:31)
[2016-05-05] MEDS: HALFPRIN EC PO SCH (09:31)
[2016-05-05] MEDS: TOPROL XL PO SCH (09:32)
[2016-05-05] MEDS: HCTZ PO SCH (09:32)
[2016-05-05] MEDS: OxyCONTIN PO SCH ×2 (09:32→21:38)
[2016-05-05] MEDS: THERAGRAN-M Tab PO SCH (09:33)
[2016-05-05] MEDS: FLONASE NS SCH (09:37)
--- NOTE | 2016-05-05 13:20 | Progress Note ---
Assessment and Plan Assessment and plan: S/P TKA - doing well HTN - Controlled - Increased losartan and metoprolol to 100mg each DM - on insulin regimen - Will monitor closely HLD - continue current meds Disposition - Per orthopedics she was discharged yesterday but she is still here because of the insurance processing issue. History Interval history: Patient is doing well, no new complaints. We consulted for the management of diabetes and hypertension. patient was discharged by orthopedics but didn't go to rehab because of insurance processing issue. Hospitalist Physical - Physical exam Narrative exam: Not in cardiopulmonary distress. The patient appeared well nourished and normally developed. Vital signs as documented. Head exam is unremarkable. No scleral icterus . Neck is without jugular venous distension, thyromegaly, or carotid bruits. Lungs are clear to auscultation. Cardiac exam reveals regular rate and Rhythm. First and second heart sounds normal. No murmurs, rubs or gallops. Abdominal exam reveals normal bowel sounds, no masses, no organomegaly and no aortic enlargement. Extremities are nonedematous and both femoral and pedal pulses are normal. MERGERS AND ACQUISITIONS MANAGER: Alert and oriented 3. No focal weakness. - Constitutional Vitals: Temp Pulse Resp BP Pulse Ox 97.5 F L 76 18 139/57 98 05/05/16 08:00 05/05/16 09:32 05/05/16 08:00 05/05/16 09:32 05/05/16 10:00 General appearance: Present: no acute distress, well-nourished Results - Labs CBC & Chem 7: 05/02/16 05:23 05/05/16 12:38 Labs: Laboratory Last Values WBC 8.4 K/mm3 (4.5-11.0) 04/24/16 11:00 RBC 4.33 M/mm3 (3.65-5.03) 04/24/16 11:00 Hgb 10.1 gm/dl (10.1-14.3) 05/02/16 05:23 Hct 30.8 % (30.3-42.9) 05/02/16 05:23 MCV 86 fl (79-97) 04/24/16 11:00 MCH 28 pg (28-32) 04/24/16 11:00 MCHC 33 % (30-34) 04/24/16 11:00 RDW 12.8 % (13.2-15.2) L 04/24/16 11:00 Plt Count 228 K/mm3 (140-440) 04/24/16 11:00 Lymph % (Auto) 36.0 % (13.4-35.0) H 04/24/16 11:00 [place] % (Auto) 7.6 % (0.0-7.3) H 04/24/16 11:00 Eos % (Auto) 3.5 % (0.0-4.3) 04/24/16 11:00 Baso % (Auto) 0.3 % (0.0-1.8) 04/24/16 11:00 Lymph # 3.0 K/mm3 (1.2-5.4) 04/24/16 11:00 [place] # 0.6 K/mm3 (0.0-0.8) 04/24/16 11:00 Eos # 0.3 K/mm3 (0.0-0.4) 04/24/16 11:00 Baso # 0.0 K/mm3 (0.0-0.1) 04/24/16 11:00 Seg Neutrophils % 52.6 % (40.0-70.0) 04/24/16 11:00 Seg Neutrophils # 4.4 K/mm3 (1.8-7.7) 04/24/16 11:00 Sodium 139 mmol/L (137-145) 05/02/16 05:23 Potassium 4.6 mmol/L (3.6-5.0) D 05/02/16 05:23 Chloride 103.1 mmol/L (98-107) 05/02/16 05:23 Carbon Dioxide 22 mmol/L (22-30) 05/02/16 05:23 Anion Gap 19 mmol/L 05/02/16 05:23 BUN 20 mg/dL (7-17) H 05/02/16 05:23 Creatinine 1.1 mg/dL (0.7-1.2) 05/02/16 05:23 Estimated GFR 59 ml/min 05/02/16 05:23 BUN/Creatinine Ratio 18.18 % 05/02/16 05:23 Glucose 429 mg/dL (65-100) H 05/05/16 12:38 POC Glucose > 500 (70-105) H 05/05/16 11:45 Calcium 8.5 mg/dL (8.4-10.2) 05/02/16 05:23 Total Bilirubin 0.3 mg/dL (0.1-1.2) 04/24/16 11:00 AST 16 units/L (5-40) 04/24/16 11:00 ALT 9 units/L (7-56) 04/24/16 11:00 Alkaline Phosphatase 87 units/L (35-129) 04/24/16 11:00 Total Protein 7.4 g/dL (6.3-8.2) 04/24/16 11:00 Albumin 3.7 g/dL (3.9-5) L 04/24/16 11:00 Albumin/Globulin Ratio 1.0 % 04/24/16 11:00
[2016-05-05] MEDS ORDERED: NOVOLOG SUB-Q ONE (13:28)
[2016-05-06] MEDS: LEVEMIR SUB-Q SCH ×2 (00:05→23:03)
[2016-05-06] MEDS: NORVASC PO SCH (09:00)
[2016-05-06] MEDS: NOVOLOG SUB-Q SCH ×3 (09:00→18:04)
[2016-05-06] MEDS: COZAAR PO SCH (09:00)
[2016-05-06] MEDS: OxyCONTIN PO SCH ×2 (09:00→23:01)
[2016-05-06] MEDS: TOPROL XL PO SCH (09:00)
[2016-05-06] MEDS: HALFPRIN EC PO SCH (09:00)
[2016-05-06] MEDS: FLONASE NS SCH (09:00)
[2016-05-06] MEDS: PEPCID PO SCH (09:00)
[2016-05-06] MEDS: THERAGRAN-M Tab PO SCH (09:00)
[2016-05-06] MEDS: HCTZ PO SCH (09:00)
[2016-05-06] MEDS: LOVENOX SUB-Q SCH (09:00)
--- NOTE | 2016-05-06 13:34 | Progress Note ---
Assessment and Plan - Patient Problems (1) Left knee DJD Current Visit: Yes Status: Chronic Qualifiers: Osteoarthritis type: primary Qualified Code(s): M17.12 - Unilateral primary osteoarthritis, left knee Plan to address problem: Stable, doing well; to continue with rehabilitation program, DVT prophylaxis. Awaiting placement, once bed available patient may be discharged to [facility]. Subjective Date of service: 05/06/16 Interval history: Total knee arthroplasty, pain well-controlled, out of bed and able to bear weight. No calf pain or tenderness. Objective Vital signs: Vital Signs - 12hr 05/06/16 05/06/16 05/06/16 08:00 09:00 10:00 Temperature 98.2 F Pulse Rate 67 Pulse Rate [ 67 Apical] Respiratory 16 20 20 Rate Respiratory Rate [Left Knee ] Blood Pressure 138/58 Blood Pressure 138/58 [Right Arm] O2 Sat by Pulse 100 Oximetry 05/06/16 12:43 Temperature Pulse Rate Pulse Rate [ Apical] Respiratory Rate Respiratory 16 Rate [Left Knee ] Blood Pressure Blood Pressure [Right Arm] O2 Sat by Pulse Oximetry - Labs CBC & BMP: 05/02/16 05:23 05/05/16 12:38 Labs: Abnormal lab results 05/05/16 05/05/16 05/06/16 Range/Units 16:04 20:45 00:02 POC Glucose 229 H 124 H 217 H (70-105) 05/06/16 05/06/16 Range/Units 07:47 11:17 POC Glucose 302 H 317 H (70-105)
--- NOTE | 2016-05-06 13:48 | Progress Note ---
Assessment and Plan Assessment and plan: S/P TKA - doing well HTN - Controlled - Increased losartan and metoprolol to 100mg each DM - on insulin regimen - Not controlled - Will adjust her insulin regimen HLD - continue current meds Disposition - The patient has been medically cleared for acute rehab and pending insurance processing. History Interval history: Patient is doing well, no new complaints. We consulted for the management of diabetes and hypertension. patient was discharged by orthopedics but didn't go to rehab because of insurance processing issue. Hospitalist Physical - Physical exam Narrative exam: Not in cardiopulmonary distress. The patient appeared well nourished and normally developed. Vital signs as documented. Head exam is unremarkable. No scleral icterus . Neck is without jugular venous distension, thyromegaly, or carotid bruits. Lungs are clear to auscultation. Cardiac exam reveals regular rate and Rhythm. First and second heart sounds normal. No murmurs, rubs or gallops. Abdominal exam reveals normal bowel sounds, no masses, no organomegaly and no aortic enlargement. Extremities are nonedematous and both femoral and pedal pulses are normal. SOD FARMER: Alert and oriented 3. No focal weakness. - Constitutional Vitals: Temp Pulse Resp BP Pulse Ox 98.2 F 67 16 138/78 100 05/06/16 08:00 05/06/16 09:00 05/06/16 12:43 05/06/16 09:00 05/06/16 08:00 General appearance: Present: no acute distress, well-nourished Results - Labs CBC & Chem 7: 05/02/16 05:23 05/05/16 12:38 Labs: Laboratory Last Values WBC 8.4 K/mm3 (4.5-11.0) 04/24/16 11:00 RBC 4.33 M/mm3 (3.65-5.03) 04/24/16 11:00 Hgb 10.1 gm/dl (10.1-14.3) 05/02/16 05:23 Hct 30.8 % (30.3-42.9) 05/02/16 05:23 MCV 86 fl (79-97) 04/24/16 11:00 MCH 28 pg (28-32) 04/24/16 11:00 MCHC 33 % (30-34) 04/24/16 11:00 RDW 12.8 % (13.2-15.2) L 04/24/16 11:00 Plt Count 228 K/mm3 (140-440) 04/24/16 11:00 Lymph % (Auto) 36.0 % (13.4-35.0) H 04/24/16 11:00 [place] % (Auto) 7.6 % (0.0-7.3) H 04/24/16 11:00 Eos % (Auto) 3.5 % (0.0-4.3) 04/24/16 11:00 Baso % (Auto) 0.3 % (0.0-1.8) 04/24/16 11:00 Lymph # 3.0 K/mm3 (1.2-5.4) 04/24/16 11:00 [place] # 0.6 K/mm3 (0.0-0.8) 04/24/16 11:00 Eos # 0.3 K/mm3 (0.0-0.4) 04/24/16 11:00 Baso # 0.0 K/mm3 (0.0-0.1) 04/24/16 11:00 Seg Neutrophils % 52.6 % (40.0-70.0) 04/24/16 11:00 Seg Neutrophils # 4.4 K/mm3 (1.8-7.7) 04/24/16 11:00 Sodium 139 mmol/L (137-145) 05/02/16 05:23 Potassium 4.6 mmol/L (3.6-5.0) D 05/02/16 05:23 Chloride 103.1 mmol/L (98-107) 05/02/16 05:23 Carbon Dioxide 22 mmol/L (22-30) 05/02/16 05:23 Anion Gap 19 mmol/L 05/02/16 05:23 BUN 20 mg/dL (7-17) H 05/02/16 05:23 Creatinine 1.1 mg/dL (0.7-1.2) 05/02/16 05:23 Estimated GFR 59 ml/min 05/02/16 05:23 BUN/Creatinine Ratio 18.18 % 05/02/16 05:23 Glucose 429 mg/dL (65-100) H 05/05/16 12:38 POC Glucose 317 (70-105) H 05/06/16 11:17 Calcium 8.5 mg/dL (8.4-10.2) 05/02/16 05:23 Total Bilirubin 0.3 mg/dL (0.1-1.2) 04/24/16 11:00 AST 16 units/L (5-40) 04/24/16 11:00 ALT 9 units/L (7-56) 04/24/16 11:00 Alkaline Phosphatase 87 units/L (35-129) 04/24/16 11:00 Total Protein 7.4 g/dL (6.3-8.2) 04/24/16 11:00 Albumin 3.7 g/dL (3.9-5) L 04/24/16 11:00 Albumin/Globulin Ratio 1.0 % 04/24/16 11:00
[2016-05-06] MEDS: PERCOCET 5/325 PO PRN (15:25)
[2016-05-07] MEDS: NOVOLOG SUB-Q SCH ×3 (07:30→16:30)
--- NOTE | 2016-05-07 10:12 | Progress Note ---
Assessment and Plan - Patient Problems (1) Left knee DJD Current Visit: Yes Status: Chronic Qualifiers: Osteoarthritis type: primary Qualified Code(s): M17.12 - Unilateral primary osteoarthritis, left knee Plan to address problem: Continue with her rehabilitation program, DVT prophylaxis, weightbearing as tolerated. To be discharged to subacute rehabilitation when bed available. Awaiting placement, confronts precert. Subjective Date of service: 05/07/16 Interval history: Total knee arthroplasty, pain well-controlled, out of bed and able to bear weight. No calf pain or tenderness. Objective Vital signs: Vital Signs - 12hr 05/07/16 00:00 Temperature 98.2 F Pulse Rate [ 70 Right From Monitor] Respiratory 18 Rate Blood Pressure 143/70 [Right Arm] O2 Sat by Pulse 98 Oximetry - Labs CBC & BMP: 05/02/16 05:23 05/05/16 12:38 Labs: Abnormal lab results 05/06/16 05/06/16 05/07/16 Range/Units 11:17 23:04 07:37 POC Glucose 317 H 282 H 219 H (70-105)
[2016-05-07] MEDS: THERAGRAN-M Tab PO SCH (11:32)
[2016-05-07] MEDS: HCTZ PO SCH (11:33)
[2016-05-07] MEDS: OxyCONTIN PO SCH ×2 (11:33→22:19)
[2016-05-07] MEDS: TOPROL XL PO SCH (11:35)
[2016-05-07] MEDS: PEPCID PO SCH (11:35)
[2016-05-07] MEDS: NORVASC PO SCH (11:36)
[2016-05-07] MEDS: HALFPRIN EC PO SCH (11:36)
[2016-05-07] MEDS: COZAAR PO SCH (11:37)
[2016-05-07] MEDS: LOVENOX SUB-Q SCH (11:38)
[2016-05-07] MEDS: FLONASE NS SCH (11:38)
[2016-05-07] MEDS: LEVEMIR SUB-Q SCH (22:23)
[2016-05-08] MEDS: NOVOLOG SUB-Q SCH ×3 (08:00→16:00)
[2016-05-08] MEDS: THERAGRAN-M Tab PO SCH (09:00)
[2016-05-08] MEDS: NORVASC PO SCH (09:00)
[2016-05-08] MEDS: LOVENOX SUB-Q SCH (09:00)
[2016-05-08] MEDS: HCTZ PO SCH (09:00)
[2016-05-08] MEDS: HALFPRIN EC PO SCH (09:00)
[2016-05-08] MEDS: PEPCID PO SCH (09:00)
[2016-05-08] MEDS: FLONASE NS SCH (09:00)
[2016-05-08] MEDS: COZAAR PO SCH (09:00)
[2016-05-08] MEDS: OxyCONTIN PO SCH (09:00)
[2016-05-08] MEDS: TOPROL XL PO SCH (10:00)
--- NOTE | 2016-05-08 13:32 | Progress Note ---
Assessment and Plan - Patient Problems (1) History of total knee arthroplasty Current Visit: Yes Status: Acute Qualifiers: Laterality: L Plan to address problem: Surgery consulted. S/P TKA. continue current therapy, pain control, supportive care. (2) Metabolic syndrome Current Visit: Yes Status: Acute Plan to address problem: Pt counseled, ADA diet, (3) HLD (hyperlipidemia) Current Visit: Yes Status: Chronic Qualifiers: Hyperlipidemia type: H (4) HTN (hypertension) Current Visit: Yes Status: Chronic Qualifiers: Hypertension type: H Plan to address problem: Monitor bp q shift, continue antihypertensive therapy (5) IDDM (insulin dependent diabetes mellitus) Current Visit: Yes Status: Chronic Plan to address problem: ADA diet, insulin, accu check (6) DVT prophylaxis Current Visit: Yes Status: Acute History Interval history: Pt resting comfortably in bed, Pt denies fever, chills, CP, Palpitations, NVD, No reported nursing events. Case management consulted. Pending placement. Hospitalist Physical - Constitutional Vitals: Temp Pulse Resp BP Pulse Ox 98.3 F 79 20 139/62 97 05/08/16 00:40 05/08/16 00:40 05/08/16 00:40 05/08/16 00:40 05/08/16 00:40 General appearance: Present: no acute distress, obese - EENT Eyes: Present: PERRL, EOM intact - Neck Neck: Present: supple - Respiratory Respiratory: bilateral: diminished - Cardiovascular Rhythm: regular Heart Sounds: Present: S1 & S2 - Extremities Extremities: no ischemia Extremity abnormal: edema Peripheral Pulses: within normal limits - Abdominal General gastrointestinal: soft, non-tender, non-distended - Integumentary Integumentary: Present: clear, dry - Psychiatric Psychiatric: appropriate mood/affect, cooperative - Neurologic Neurologic: CNII-XII intact Results - Labs CBC & Chem 7: 05/02/16 05:23 05/05/16 12:38 Labs: Laboratory Last Values WBC 8.4 K/mm3 (4.5-11.0) 04/24/16 11:00 RBC 4.33 M/mm3 (3.65-5.03) 04/24/16 11:00 Hgb 10.1 gm/dl (10.1-14.3) 05/02/16 05:23 Hct 30.8 % (30.3-42.9) 05/02/16 05:23 MCV 86 fl (79-97) 04/24/16 11:00 MCH 28 pg (28-32) 04/24/16 11:00 MCHC 33 % (30-34) 04/24/16 11:00 RDW 12.8 % (13.2-15.2) L 04/24/16 11:00 Plt Count 228 K/mm3 (140-440) 04/24/16 11:00 Lymph % (Auto) 36.0 % (13.4-35.0) H 04/24/16 11:00 [place] % (Auto) 7.6 % (0.0-7.3) H 04/24/16 11:00 Eos % (Auto) 3.5 % (0.0-4.3) 04/24/16 11:00 Baso % (Auto) 0.3 % (0.0-1.8) 04/24/16 11:00 Lymph # 3.0 K/mm3 (1.2-5.4) 04/24/16 11:00 [place] # 0.6 K/mm3 (0.0-0.8) 04/24/16 11:00 Eos # 0.3 K/mm3 (0.0-0.4) 04/24/16 11:00 Baso # 0.0 K/mm3 (0.0-0.1) 04/24/16 11:00 Seg Neutrophils % 52.6 % (40.0-70.0) 04/24/16 11:00 Seg Neutrophils # 4.4 K/mm3 (1.8-7.7) 04/24/16 11:00 Sodium 139 mmol/L (137-145) 05/02/16 05:23 Potassium 4.6 mmol/L (3.6-5.0) D 05/02/16 05:23 Chloride 103.1 mmol/L (98-107) 05/02/16 05:23 Carbon Dioxide 22 mmol/L (22-30) 05/02/16 05:23 Anion Gap 19 mmol/L 05/02/16 05:23 BUN 20 mg/dL (7-17) H 05/02/16 05:23 Creatinine 1.1 mg/dL (0.7-1.2) 05/02/16 05:23 Estimated GFR 59 ml/min 05/02/16 05:23 BUN/Creatinine Ratio 18.18 % 05/02/16 05:23 Glucose 429 mg/dL (65-100) H 05/05/16 12:38 POC Glucose 108 (70-105) H 05/08/16 12:10 Calcium 8.5 mg/dL (8.4-10.2) 05/02/16 05:23 Total Bilirubin 0.3 mg/dL (0.1-1.2) 04/24/16 11:00 AST 16 units/L (5-40) 04/24/16 11:00 ALT 9 units/L (7-56) 04/24/16 11:00 Alkaline Phosphatase 87 units/L (35-129) 04/24/16 11:00 Total Protein 7.4 g/dL (6.3-8.2) 04/24/16 11:00 Albumin 3.7 g/dL (3.9-5) L 04/24/16 11:00 Albumin/Globulin Ratio 1.0 % 04/24/16 11:00
--- NOTE | 2016-05-08 13:33 | Progress Note ---
Assessment and Plan - Patient Problems (1) History of total knee arthroplasty Current Visit: Yes Status: Acute Qualifiers: Laterality: L Plan to address problem: Surgery consulted. S/P TKA. continue current therapy, pain control, supportive care. (2) Metabolic syndrome Current Visit: Yes Status: Acute Plan to address problem: Pt counseled, ADA diet, (3) HLD (hyperlipidemia) Current Visit: Yes Status: Chronic Qualifiers: Hyperlipidemia type: H (4) HTN (hypertension) Current Visit: Yes Status: Chronic Qualifiers: Hypertension type: H Plan to address problem: Monitor bp q shift, continue antihypertensive therapy (5) IDDM (insulin dependent diabetes mellitus) Current Visit: Yes Status: Chronic Plan to address problem: ADA diet, insulin, accu check (6) DVT prophylaxis Current Visit: Yes Status: Acute History Interval history: Pt resting in bed, Pt denies fever, chills, CP, Palpitations, NVD, No reported nursing events. Case management consulted. Pending placement. Hospitalist Physical - Constitutional Vitals: Temp Pulse Resp BP Pulse Ox 98.3 F 79 20 139/62 97 05/08/16 00:40 05/08/16 00:40 05/08/16 00:40 05/08/16 00:40 05/08/16 00:40 General appearance: Present: no acute distress, obese - EENT Eyes: Present: PERRL, EOM intact ENT: hearing intact - Neck Neck: Present: supple - Respiratory Respiratory: bilateral: diminished - Cardiovascular Rhythm: regular Heart Sounds: Present: S1 & S2 - Extremities Extremities: no ischemia Peripheral Pulses: within normal limits - Abdominal General gastrointestinal: soft, non-tender, non-distended, no hepatomegaly, no splenomegaly - Integumentary Integumentary: Present: clear, dry - Psychiatric Psychiatric: appropriate mood/affect, cooperative - Neurologic Neurologic: CNII-XII intact Results - Labs CBC & Chem 7: 05/02/16 05:23 05/05/16 12:38 Labs: Laboratory Last Values WBC 8.4 K/mm3 (4.5-11.0) 04/24/16 11:00 RBC 4.33 M/mm3 (3.65-5.03) 04/24/16 11:00 Hgb 10.1 gm/dl (10.1-14.3) 05/02/16 05:23 Hct 30.8 % (30.3-42.9) 05/02/16 05:23 MCV 86 fl (79-97) 04/24/16 11:00 MCH 28 pg (28-32) 04/24/16 11:00 MCHC 33 % (30-34) 04/24/16 11:00 RDW 12.8 % (13.2-15.2) L 04/24/16 11:00 Plt Count 228 K/mm3 (140-440) 04/24/16 11:00 Lymph % (Auto) 36.0 % (13.4-35.0) H 04/24/16 11:00 [place] % (Auto) 7.6 % (0.0-7.3) H 04/24/16 11:00 Eos % (Auto) 3.5 % (0.0-4.3) 04/24/16 11:00 Baso % (Auto) 0.3 % (0.0-1.8) 04/24/16 11:00 Lymph # 3.0 K/mm3 (1.2-5.4) 04/24/16 11:00 [place] # 0.6 K/mm3 (0.0-0.8) 04/24/16 11:00 Eos # 0.3 K/mm3 (0.0-0.4) 04/24/16 11:00 Baso # 0.0 K/mm3 (0.0-0.1) 04/24/16 11:00 Seg Neutrophils % 52.6 % (40.0-70.0) 04/24/16 11:00 Seg Neutrophils # 4.4 K/mm3 (1.8-7.7) 04/24/16 11:00 Sodium 139 mmol/L (137-145) 05/02/16 05:23 Potassium 4.6 mmol/L (3.6-5.0) D 05/02/16 05:23 Chloride 103.1 mmol/L (98-107) 05/02/16 05:23 Carbon Dioxide 22 mmol/L (22-30) 05/02/16 05:23 Anion Gap 19 mmol/L 05/02/16 05:23 BUN 20 mg/dL (7-17) H 05/02/16 05:23 Creatinine 1.1 mg/dL (0.7-1.2) 05/02/16 05:23 Estimated GFR 59 ml/min 05/02/16 05:23 BUN/Creatinine Ratio 18.18 % 05/02/16 05:23 Glucose 429 mg/dL (65-100) H 05/05/16 12:38 POC Glucose 108 (70-105) H 05/08/16 12:10 Calcium 8.5 mg/dL (8.4-10.2) 05/02/16 05:23 Total Bilirubin 0.3 mg/dL (0.1-1.2) 04/24/16 11:00 AST 16 units/L (5-40) 04/24/16 11:00 ALT 9 units/L (7-56) 04/24/16 11:00 Alkaline Phosphatase 87 units/L (35-129) 04/24/16 11:00 Total Protein 7.4 g/dL (6.3-8.2) 04/24/16 11:00 Albumin 3.7 g/dL (3.9-5) L 04/24/16 11:00 Albumin/Globulin Ratio 1.0 % 04/24/16 11:00
[2016-05-08 16:16] VITALS: BP 132/59
--- NOTE | 2016-05-10 01:08 | Discharge Summary ---
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 MORALES Notified:: DR. MORALES Was contact made?: Yes If yes, spoke with:: DR. MORALES Time called:: 18:37 Comment:: CONSULT COMPLETED - [place] Physical Therapy Evaluation and Treat [CONS] Routine Comment: Reason For Exam: s/p left total knee Mode of Transport?: Wheelchair Weight bearing status?: Partial wt bearing Assistive devices?: Yes If so list: Walker 05/02/16 14:40 Physical Therapy Evaluation and Treat [CONS] Routine Comment: Reason For Exam: s/p total knee Primary care physician: [employer]OL TR[employer]ER Hospitalization Condition: Stable Hospital course: 71 YO Female admitted for Knee pain secondary to DJD. Pt seen and evaluated by Ortho surgery team. Pt taken to OR and underwent Left TKR. Pt treated with pain control and and supportive care postoperatively. Pt convalesced well during hospital course. PT consulted. Pt deemed a candidate for rehab. Case management consulted for rehab placement. Pt evaluated prior to discharge but no significant new physical exam findings since admission. Pt medically optimized. Pt subsequently discharged to SNF under care of certified medical coder. Pt counseled regarding balanced diet, and increased physical activity. 34 minutes dedicated to patient discharge and education. Disposition: DC/TX INPT REHAB FACILITY - Discharge Diagnoses (1) History of total knee arthroplasty Status: Acute Qualifiers: Laterality: L (2) Metabolic syndrome Status: Acute (3) HLD (hyperlipidemia) Status: Chronic Qualifiers: Hyperlipidemia type: H (4) HTN (hypertension) Status: Chronic Qualifiers: Hypertension type: H (5) IDDM (insulin dependent diabetes mellitus) Status: Chronic (6) DVT prophylaxis Status: Acute Core Measure Documentation - Palliative Care Palliative Care/ Comfort Measures: Not Applicable - Core Measures Any of the following diagnoses?: none Exam - Constitutional Vitals: Temp Pulse Resp BP Pulse Ox 98.6 F 75 20 132/59 100 05/08/16 16:00 05/08/16 16:00 05/08/16 16:00 05/08/16 16:00 05/08/16 16:00 General appearance: Present: no acute distress, obese - EENT Eyes: Present: PERRL ENT: hearing intact, clear oral mucosa - Neck Neck: Present: supple, normal ROM - Respiratory Respiratory effort: normal Respiratory: bilateral: CTA - Cardiovascular Heart Sounds: Present: S1 & S2. Absent: rub, click - Extremities Extremities: pulses symmetrical, No edema Peripheral Pulses: within normal limits - Abdominal General gastrointestinal: Present: soft, non-tender, non-distended, normal bowel sounds Female genitourinary: Present: normal - Integumentary Integumentary: Present: clear, warm, dry - Musculoskeletal Musculoskeletal: strength equal bilaterally, generalized weakness - Psychiatric Psychiatric: appropriate mood/affect, intact judgment & insight - Neurologic Neurologic: CNII-XII intact, moves all extremities Plan Activity: advance as tolerated Follow up with: PRIMARY MD SILVIA [Primary Care Provider] - 7 Days TABATHA OKEEFE MD [Staff Physician] - 7 Days Prescriptions: Enoxaparin [Lovenox] 40 mg SQ QDAY #14 syringe
== END 2016-05-08 16:00 | DRG 470 ==
LOC: 3A 09:38 → 2B-SURG 15:10
PROVIDERS: ADMIT Orthopaedic Surgery; ATTEND Internal Medicine
PROC: 0SRD0J9 Replacement of Left Knee Joint with Synthetic Substitute, Cemented, Open Approach (ICD-10-PCS; principal; 2016-05-01)
DX: M17.12 Unilateral primary osteoarthritis, left knee (principal); Z68.41 Body mass index [BMI] 40.0-44.9, adult; E66.9 Obesity, unspecified; E11.9 Type 2 diabetes mellitus without complications; E78.2 Mixed hyperlipidemia; I10 Essential (primary) hypertension; K21.9 Gastro-esophageal reflux disease without esophagitis; E88.81 Metabolic syndrome and other insulin resistance; Z87.891 Personal history of nicotine dependence
CPT/HCPCS: 36415; 62324; 64447; 80048; 80053; 82947; 82962; 84132; 85014; 85018; 85025; 88304; 88305; 88311; A4217; A9270-GY; C1776; J0690; J1170; J1650; J1815; J1818; J2250; J2405; J2704; J7030